=== PATIENT | male | born 1965 | race Caucasian/White ===

== ENCOUNTER 2022-02-20 08:52 | Outpatient (CLI) | payer BC, SELFPAY ==
[2022-02-20 14:21] LABS: Chloride* 103 mmol/L (96-114); Potassium* 3.9 mmol/L (3.6-5.1); Sodium* 139 mmol/L (135-149)
[2022-02-20 14:23] LABS: Cholesterol* 145 mg/dL (90-199); Creatinine* 1.1 mg/dL (0.5-1.5); Estimated Glomerular Filt Rate 78 ml/min
[2022-02-20 14:24] LABS: Blood Urea Nitrogen* 21 mg/dL (7-30); Calcium* 9.2 mg/dL (8.4-10.6); Carbon Dioxide* 27 mmol/L (20-32); Glucose* 94 mg/dL (60-115); Triglycerides* 64 mg/dL (40-149)
[2022-02-20 14:25] LABS: HDL Cholesterol* 50 mg/dL (>=40); LDL Cholesterol Calculated 82 mg/dL (<100)
[2022-02-20 14:55] LABS: PSA Screen* 0.52 ng/mL (0.10-4.00)
[2022-02-25 09:38] LABS: Sex Hormone Binding Globulin 85 nmol/L (19-76); Testosterone, Free LC-MS/MS 74.7 pg/mL (47.0-244.0); Testosterone, LC-MS/MS 713 ng/dL (300-890)
== END 2022-02-20 08:53 | disposition home or self-care (01) ==
PROVIDERS: PCP Family Medicine; Visit Provider Family Medicine
DX: Z00.00 Encounter for general adult medical examination without abnormal findings (principal); R68.82 Decreased libido; D61.818 Other pancytopenia; I48.91 Unspecified atrial fibrillation; Q23.1 Congenital insufficiency of aortic valve
CPT/HCPCS: 80048; 80061; 84153; 84270; 84402; 84403

== ENCOUNTER 2022-05-09 14:35 | Outpatient (CLI) | payer BC, SELFPAY ==
[2022-05-09 21:53] LABS: Chloride* 105 mmol/L (96-114); Potassium* 4.1 mmol/L (3.6-5.1); Sodium* 140 mmol/L (135-149)
[2022-05-09 21:56] LABS: Blood Urea Nitrogen* 18 mg/dL (7-30); Calcium* 9.2 mg/dL (8.4-10.6); Carbon Dioxide* 29 mmol/L (20-32); Creatinine* 1.1 mg/dL (0.5-1.5); Estimated Glomerular Filt Rate 78 ml/min; Glucose* 74 mg/dL (60-115)
== END 2022-05-09 14:36 | disposition home or self-care (01) ==
PROVIDERS: PCP Family Medicine; Visit Provider Emergency Medicine
DX: Z01.818 Encounter for other preprocedural examination (principal)
CPT/HCPCS: 80048

== ENCOUNTER 2022-05-11 08:26 | Day surgery (SDC) | payer BC, SELFPAY ==
[2022-05-11] VITALS (27 sets, daily range): BP systolic 115–142; BP diastolic 61–84; PULSE 57–74; RESP 14–16; TEMP 36.2–36.7; O2SAT 96–100; BMI 23.0
[2022-05-11] MEDS: LACTATED RINGERS 1000 ML 1,000 ML 100 ML IV ×2 (09:00→12:22)
[2022-05-11] MEDS: SODIUM CHLORIDE 0.9 % (FLUSH) 10 ML SYRINGE IVF (09:00)
[2022-05-11] MEDS: CLINDAMYCIN 900 MG/50 ML-D5W IVPB (11:21)
[2022-05-11] MEDS: BUPIVACAINE 0.5% 30 ML INJECTION (12:35)
--- NOTE | 2022-05-11 12:55 | W.ANESCHARGE ---
Anesthesia Charges Start Date/Time Anesthesia Start Date: 05/11/22 Anesthesia Start Time: 11:17 Stop Date/Time Anesthesia Stop Date: 05/11/22 Anesthesia Stop Time: 12:54 Summary Emergency: No
--- NOTE | 2022-05-11 12:56 | W.ANESCHARGE ---
Anesthesia Charges Start Date/Time Anesthesia Start Date: 05/11/22 Anesthesia Start Time: 11:17 Stop Date/Time Anesthesia Stop Date: 05/11/22 Anesthesia Stop Time: 12:54 Summary Emergency: No
--- NOTE | 2022-05-11 13:26 | P.GSOP_ITS ---
Operative Note Date of procedure: 05/11/22 Pre-op diagnosis: Right inguinal hernia Post-op diagnosis: Same Type of Procedure: Open right inguinal hernia repair with mesh Indications: The patient is a 57-year-old male who presented to clinic with right groin pain after shoveling. He was found to have a right inguinal hernia. After discussion of options for management he elected to proceed with repair. Procedure Description: After discussing the risks and benefits of the procedure, the patient signed informed consent.? The operative site was marked and the patient was brought to the operating room and placed on the operating table in supine position.? Care was taken to pad the patient's pressure points.?? The patient was then intubated by anesthesia.?? The operative site was then prepped and draped in the usual sterile fashion.? A time-out was then performed. Local anesthetic was injected into the skin and subcutaneous tissue overlying the inguinal canal. An ilioinguinal nerve block was performed. An oblique incision was made over the external ring. Dissection was carried down into the subcutaneous tissue using cautery until the external oblique fascia was encountered. This was cleared off. The external ring was identified and after injection of more local anesthetic, the external oblique was incised using a knife. This was extended using the Metzenbaum scissors with care to dissect the underlying cord structures away from the fascia before cutting. The cord was cleared from the inside of the inguinal canal and looped with a Marck drain. A indirect inguinal hernia was identified. The hernia sac was dissected off of the cord structures. The sac was opened to ensure no intra-abdominal structures were contained within. It was then ligated proximally and reduced into the abdomen. A piece of polypropylene mesh was obtained and cut to size. This was secured to the pubic tubercle using to 0 Prolene on a double-armed suture. The Prolene was run along the inguinal ligament inferiorly and along the transversalis fascia superiorly, securing the tails around the cord and re-creat ing the internal ring. The ring was just large enough to permit my fingertip. The wound was examined for hemostasis which was found to be adequate. The external oblique fascia was then reapproximated with absorbable suture. The wound was then closed in layers including Stefani's fascia and the dermis with absorbable suture. The skin was then closed with a running subcuticular suture. Sterile dressings were applied. Instrument, sponge, and needle counts were correct at the end of the case. The scrotum was examined and contain both testicles. The patient was woken and taken to the PACU in stable condition. Findings: Indirect right inguinal hernia Anesthesia: EMILIE Surgeon: Hoda Morales MD Estimated blood loss (mL): 5 Condition: stable Disposition: PACU
[2022-05-11] MEDS: HYDROCODONE-ACETAMIN 5-325 MG 1 TAB PO (13:58)
== END 2022-05-11 15:00 | disposition home or self-care (01) ==
PROVIDERS: PCP Family Medicine; Visit Provider Surgery
PROC: (CPT 49505; principal; 2022-05-11 09:45)
DX: K40.90 Unilateral inguinal hernia, without obstruction or gangrene, not specified as recurrent (principal)
CPT/HCPCS: 49505; 00830; A9270; C1781; J0330; J1885; J2250; J2405; J2704; J3010; J3490; J7120; S0077

== ENCOUNTER 2023-03-06 09:06 | Outpatient (CLI) | payer BC, SELFPAY | END 2023-03-06 09:07 | disposition home or self-care (01) | PROVIDERS: PCP Family Medicine; Visit Provider Family Medicine | DX: Z00.00 Encounter for general adult medical examination without abnormal findings (principal); R68.82 Decreased libido; E87.6 Hypokalemia; R32 Unspecified urinary incontinence; D61.818 Other pancytopenia | CPT/HCPCS: 80053; 80061; 84153 ==

== ENCOUNTER 2024-01-28 18:02 | Outpatient (CLI) | payer BC, SELFPAY | END 2024-01-28 18:03 | disposition home or self-care (01) | PROVIDERS: PCP Family Medicine; Visit Provider Family Medicine | DX: E87.6 Hypokalemia (principal); Z13.220 Encounter for screening for lipoid disorders; Z12.5 Encounter for screening for malignant neoplasm of prostate; D61.818 Other pancytopenia | CPT/HCPCS: 80053; 80061; G0103 ==

== ENCOUNTER 2024-02-18 07:12 | Outpatient (CLI) | payer BC, SELFPAY ==
--- NOTE | 2024-02-18 08:18 | W.ANESCHARGE ---
Anesthesia Charges Start Date/Time Anesthesia Start Date: 02/18/24 Anesthesia Start Time: 07:50 Stop Date/Time Anesthesia Stop Date: 02/18/24 Anesthesia Stop Time: 08:16
--- NOTE | 2024-02-18 09:36 | W.ANESCHARGE ---
Anesthesia Charges Start Date/Time Anesthesia Start Date: 02/18/24 Anesthesia Start Time: 07:50 Stop Date/Time Anesthesia Stop Date: 02/18/24 Anesthesia Stop Time: 08:16
== END 2024-02-18 07:13 | disposition home or self-care (01) ==
LOC: OP CLINIC 07:13
PROVIDERS: PCP Family Medicine; Visit Provider Internal Medicine
DX: Z12.11 Encounter for screening for malignant neoplasm of colon (principal); K64.9 Unspecified hemorrhoids; Z86.0100 Personal history of colon polyps, unspecified
CPT/HCPCS: 00811; 00812; 45378; J2704

== ENCOUNTER 2024-10-17 08:45 | Outpatient (CLI) | payer BC, SELFPAY ==
--- OUTSIDE RECORDS SUMMARY | 2024-10-18 00:25 | XMS_ITS | Encounter Summary ---
[facility] Address [address] [address] Care Team Providers Care Practical Ministries Professor Name Role Phone Ba Trotter MD Primary Care Provider [phone] Encounter Details Date Type Department Care Team (Latest Contact Info) Description 02/14/1996 Orders Only Fan Taylor MD Social History Tobacco Use Types Packs/Day Years Used Date Smoking Tobacco: Never Assessed Sex and Gender Information Value Date Recorded Sex Assigned at Not on file Legal Sex Male 4:17 AM CDT Gender Identity Not on file Sexual Orientation Not on file documented as of this encounter Plan of Treatment Not on file documented as of this encounter Visit Diagnoses Not on filedocumented in this encounter Care Teams Practical Ministries Professor Relationship Specialty Start Date End Date Ba Trotter MD [address] [place] [address] PCP - General Family Practice 07/16/23 documented as of this encounter
--- OUTSIDE RECORDS SUMMARY | 2024-10-18 00:25 | XMS_ITS | Clinical Summary ---
Author Organization [facility] Address [address] [place] [address] Care Team Providers Care Dairy Consultant Name Role Phone Pati Trotter MD Primary Care Provider [phone] Allergies Active Allergy Reactions Criticality Noted Date Comments Amoxicillin Rash 08/20/2013 Penicillins Rash 08/20/2013 Medications beta carotene (VITAMIN A) 25,000 unit capsule Take 25,000 units by mouth three times daily. 0 08/20/2013 Active Active Problems Problem Noted Date Diagnosed Date Small bowel obstruction 07/11/2023 S/P ablation of accessory bypass tract 5 Sustained SVT 05/08/2014 Encounters Date Type Department Care Team Description 10/17/2024 9:00 AM CDT Ancillary Procedure [facility] [address] [address] Arrived from Last 3 Months Family History Medical History Relation Name Comments Heart Disease Father Relation Name Status Comments Father Social History Tobacco Use Types Packs/Day Years Used Date Smoking Tobacco: Never Smokeless Tobacco: Never Tobacco Cessation:Counseling Given: Yes Alcohol Use Standard Drinks/Week Comments Yes 0 (1 standard drink = 0.6 oz pur e alcohol) Social Connections Answer Date Recorded Do you often feel lonely or isolated from those around you? 0 07/11/2023 Financial Resource Strain Answer Date R ecorded Difficulty of Paying Living Expenses 3 07/11/2023 Difficulty of Paying Living Expenses Not on file 07/11/2023 Food Insecurity Answer Date Recorded Do you worry your food will run out before you are able to buy more? 1 07/11/2023 Transportation Needs Answer Date Record ed Does lack of transportation keep you from medica l appointments? 1 07/11/2023 Does lack of transportation keep you from work, meetings or getting things that you need? 1 07/11/2023 Housing Stability Answer Date Recorded What is your housing situation today? 1 07/11/2023 Interpersonal Safety Answer Date Record ed Are you being hit, kicked, p ushed or yelled at (see row info)? No 07/11/2023 Interpersonal Safety Abuse 12 - 18 Not on file 07/11/2023 Interpersonal Safety Ambulatory Vulnerability No t on file 07/11/2023 Utilities Answer Date Recorded Do you have trouble paying f or utilities (for example, heat, electricity, water, phone)? 1 07/11/2023 Sex and Gender Information Value Date Recorded Sex Assigned at Not on file Legal Sex Male 6:08 AM [employer] Gender Identity Not on file Sexual Orientation Not on file Obstetrics History Last Filed Vital Signs Vital Sign Reading Time Taken Comments Blood Pressure 141/90 07/16/2023 3:53 PM CDT Pulse 84 07/16/2023 3:53 PM CDT Temperature 36.1 C (97 F) 07/16/2023 3:53 PM CDT Respiratory Rate 16 07/16/2023 3:53 PM CDT Oxygen Saturation 99% 07/16/2023 3:53 PM CDT Inhaled Oxygen Concentration - - Weight 81.6 kg (180 lb) 07/11/2023 6:08 PM CDT Height 180.3 cm (5' 11) 07/11/2023 6:08 PM CDT Body Mass Index 25.1 07/11/2023 6:08 PM CDT Plan of Treatment Health Maintenance Due Date Last Done Comments Tdap 01/31/1976 Depression screening for age 12+ 1977 HIV for age 15-65 01/31/1980 BMI (ht and wt on same day) for age 18+ 1983 Hepatitis C screening for age 18-79 1983 Hepatitis B series for 19+ (1 of 3 - 19+ 3-dose series ) 01/31/1984 Pneumococcal series for age 50+ (1 of 2 - PCV) 984 Tetanus booster 1985 Colonoscopy through age 75 2010 Lipids for age 45-75 2010 Zoster (shingles) series for age 50+ (1 of 2) 01/31/20 15 COVID-19 vaccine series ( season) 4 Influenza Vaccine (Season Ended) 2024 Procedures Procedure Name Priority Date/Time Associated Diagnosis Comments ECHO TTE COMPLETE WO CONTRAST Routine 10/17/2024 9:40 AM CDT Congenital insufficiency of aortic valve (HC) from Last 3 Months Results * ECHO TTE COMPLETE WO CONTRAST (10/17/2024 9:40 AM CDT) AORTIC VALVE MEAN PG 3 mmHg EJECTION FRACTION 65 % LVEDD 4.0 cm EJECTION FRACTION 60 - 65% Anatomical Region Laterality Modality Ultrasound 10/17/2024 9:08 AM CDT Narrative 10/17/2024 10:11 AM CDT ECHOCARDIOGRAM JESUS CRUZ : 1965 59 years Study Date: 10/17/2024 9:08:45 AM Gender: M BP: 127/69 mmHg Height: 183.00 cm BSA: 2.07 m Weight: 85.00 kg Tech: [facility] Referring MD: PATI TROTTER Site: [facility] Reading Location: Mobile-OP Patient Location: Outpatient. Procedure: 2D, Color Doppler and Spectral Doppler. Indication for study: Congenital insufficiency of aortic valve (HC) Cardiac Rhythm: Regular and with premature ventricular contractions.Study quality: Fair. Imaging limitations: This study was subject to imaging limitations due to a prominent lung artifact. Final Impressions: 1. Normal LV size, normal wall thickness, normal function with an estimated EF of 60 - 65%. 2. Right ventricular cavity size is normal, global systolic RV function is normal. 3. The aortic valve is trileaflet and normal, no stenosis and trivial regurgitation. Comparison Compared to prior exam of 07/09/2020: The aortic valve is better visualized and is tri-leaflet Chamber Sizes and Function Normal left ventricular size, normal wall thickness, normal global systolic function with an estimated EF of 60 - 65%. No resting regional wall motion abnormality visualized. Left atrial size is normal. Right ventricular cavity size is normal, global systolic RV function is normal. The right atrium is normal. Right atrial volume index is 22 ml/m . Right atrial area is 16 cm . The pulmonary artery is not well visualized. The sinus of Valsalva is normal sized. The ascending aorta is normal sized. Valves, RV Pressures and Diastolic Function The aortic valve is trileaflet and normal in structure, no stenosis and trivial regurgitation. The mitral valve is normal in structure, trace mitral regurgitation. Normal diastolic function. The tricuspid valve is normal in structure, mild tricuspid regurgitation. The pulmonic valve is normal. Trace pulmonary regurgitation. Masses, Effusion, Shunts There is no pericardial effusion. The inferior vena cava is not well visualized, respiratory size variation not well visualized. No left to right shunting was detected by limited color flow Doppler interrogation of the interatrial septum. MEASUREMENTS AND CALCULATIONS 2-D Measurements and LV Function: LVID (d) 4.0 cm LV FS% (2D) 40 % LVID (s) 2.4 cm LVOT diameter 2.2 cm IVS (d) 1.0 cm HR 60 bpm LVPW (d) 1.0 cm LA Vol index 17 ml/m2 Ao Sinus 3.6 cm RA Vol index 22 ml/m2 Ao Sinus ULN 4.1 cm RA area 16 cm Asc Ao 3.1 cm RV Basal Diam 3.7 cm Asc Ao ULN 4.1 cm RV Mid Diam 2.9 cm LA 3.1 cm Diastology: Mitral Tissue Doppler E Peak 1.0 m/s e', Septum 0.11 m/s A Peak 0.6 m/s e', Lateral 0.08 m/s E/A 1.7 E/e' Average 10.26 DT 234 msec Aortic Valve: Vmax 1.1 m/s JANNETTE (V) 2.98 cm VTI 0.24 m JANNETTE (I) 2.86 cm LVOT V max 0.9 m/s Max PG 5 mmHg LVOT VTI 0.19 m Mean PG 3 mmHg SV 70 ml Dim Index 0.79 SV index 34 ml/m CO 4.2 l/min CI 2.0 l/min/m Mitral Valve: MVA 3.2 cm MR TVI 1.61 m MV P 1/2 68 msec Tricuspid Valve and estimated PA pressures: TAPSE 2.8 cm . This study was interpreted by an [facility] accredited facility. Final Procedure Note Sai Box MD - 10/17/2024 ECHOCARDIOGRAM JESUS CRUZ : 1965 59 years Study Date: 10/17/2024 9:08:45 AM Gender: M BP: 127/69 mmHg Height: 183.00 cm BSA: 2.07 m Weight: 85.00 kg Tech: [facility] Referring MD: PATI TROTTER Site: [facility] Reading Location: Mobile-OP Patient Location: Outpatient. Procedure: 2D, Color Doppler and Spectral Doppler. Indication for study: Congenital insufficiency of aortic valve (HC) Cardiac Rhythm: Regular and with premature ventricular contractions.Studyquality: Fair. Imaging limitations: This study was subject to imaging limitations due toa prominent lung artifact. Final Impressions: 1. Normal LV size, normal wall thickness, normal function with anestimated EF of 60 - 65%. 2. Right ventricular cavity size is normal, global systolic RV functionis normal. 3. The aortic valve is trileaflet and normal, no stenosis and trivialregurgitation. Comparison Compared to prior exam of 07/09/2020: The aortic valve is better visualizedand is tri-leaflet Chamber Sizes and Function Normal left ventricular size, normal wall thickness, normal globalsystolic function with an estimated EF of 60 - 65%. No resting regionalwall motion abnormality visualized. Left atrial size is normal. Rightventricular cavity size is normal, global systolic RV function is normal.The right atrium is normal. Right atrial volume index is 22 ml/m . Rightatrial area is 16 cm . The pulmonary artery is not well visualized. Thesinus of Valsalva is normal sized. The ascending aorta is normal sized. Valves, RV Pressures and Diastolic Function The aortic valve is trileaflet and normal in structure, no stenosis andtrivial regurgitation. The mitral valve is normal in structure, tracemitral regurgitation. Normal diastolic function. The tricuspid valve isnormal in structure, mild tricuspid regurgitation. The pulmonic valve isnormal. Trace pulmonary regurgitation. Masses, Effusion, Shunts There is no pericardial effusion. The inferior vena cava is not wellvisualized, respiratory size variation not well visualized. No left toright shunting was detected by limited color flow Doppler interrogation ofthe interatrial septum. MEASUREMENTS AND CALCULATIONS 2-D Measurements and LV Function: LVID (d) 4.0 cm LV FS% (2D) 40 % LVID (s) 2.4 cm LVOT diameter 2.2 cm IVS (d) 1.0 cm HR 60 bpm LVPW (d) 1.0 cm LA Vol index 17 ml/m2 Ao Sinus 3.6 cm RA Vol index 22 ml/m2 Ao Sinus ULN 4.1 cm RA area 16 cm Asc Ao 3.1 cm RV Basal Diam 3.7 cm Asc Ao ULN 4.1 cm RV Mid Diam 2.9 cm LA 3.1 cm Diastology: Mitral Tissue Doppler E Peak 1.0 m/s e', Septum 0.11 m/s A Peak 0.6 m/s e', Lateral 0.08 m/s E/A 1.7 E/e' Average 10.26 DT 234 msec Aortic Valve: Vmax 1.1 m/s JANNETTE (V) 2.98 cm VTI 0.24 m JANNETTE (I) 2.86 cm LVOT V max 0.9 m/s Max PG 5 mmHg LVOT VTI 0.19 m Mean PG 3 mmHg SV 70 ml Dim Index 0.79 SV index 34 ml/m CO 4.2 l/min CI 2.0 l/min/m Mitral Valve: MVA 3.2 cm MR TVI 1.61 m MV P 1/2 68 msec Tricuspid Valve and estimated PA pressures: TAPSE 2.8 cm . This study was interpreted by an [facility] accredited facility. Final Pati Trotter MD ECHO ORD Final Result from Last 3 Months Insurance [facility] Advance Directives * Full Code (Latest Code Status on File) Date Activated Date Inactivated Comments 07/11/2023 10:28 PM 07/16/2023 7:34 PM Question Answer Comments Code Status Discussion: Reviewed Preferences Care Teams Dairy Consultant Relationship Specialty Start Date End Date Pati Trotter MD [address] [place] [address] PCP - General Family Practice 07/11/23
--- OUTSIDE RECORDS SUMMARY | 2024-10-18 00:25 | XMS_ITS | Clinical Summary ---
Author Organization [facility] Address [address] [place] [address] Care Team Providers Care Newsstand Vendor Name Role Phone Ba Trotter MD Primary Care Provider [phone] Source Comments You are receiving this document as you are listed as the primary care provider,follow-up provider, or the patient has been referred to you for consultation.This is in compliance with the Medicare and[facility] EHR Incentive Program,which states Providers who transition their patient to another setting of careor provider of care or refers their patient to another provider of care shouldprovide summary care record for each transition of care or referral. Independent IP Allergies Active Allergy Reactions Criticality Noted Date Comments Amoxicillin Rash 07/18/2023 Penicillins Rash 07/18/2023 Medications [id number] LYTES (AKA GOLYTELY) 236 g SOLR 4 liter bottle Take by mouth. 03/06/2023 Active Social History Tobacco Use Types Packs/Day Years Used Date Smoking Tobacco: Never Assessed Sex and Gender Information Value Date Recorded Sex Assigned at Not on file Legal Sex Male 4:17 AM CDT Gender Identity Not on file Sexual Orientation Not on file Plan of Treatment Health Maintenance Due Date Last Done Comments Colon Cancer Screening Plan Due 1965 Hep C Screening (Preventive Services) 1965 PSA Screening Discussion 1965 HIV Screening (Preventive Services) 1981 Adult Preventive Visit 1983 HepB Vaccine (1) 01/31/1984 Cholesterol 01/31/2000 Pneumococcal Vaccine 50+ Yrs (1 of 1 - PCV) 2015 Zoster/Shingles Vaccine (1 o f 2) 2015 COVID-19 Vaccine (1 - 2023-2 5 season) 2023 Influenza Vaccine (Season Ended) 2024 DTaP/Tdap/Td Vaccine (3 - Tdap) 02/21/2032 02/20/2022, 11/15/2009 HepA Vaccine Aged Out No longer eligi ble based on patient's age to complete this topic Hib Vaccine Aged Out No longer eligi ble based on patient's age to complete this topic IPV (Polio) Vaccine Aged Out No longe r eligible based on patient's age to complete this topic MCV4 Vaccine Aged Out No longer eligi ble based on patient's age to complete this topic Meningococcal B Vaccine Aged Out No l onger eligible based on patient's age to complete this topic [place] [address] Care Teams Newsstand Vendor Relationship Specialty Start Date End Date Ba Trotter MD [address] [place] [address] PCP - General Family Practice 07/16/23
== END 2024-10-17 08:46 | disposition home or self-care (01) ==
LOC: RAD 08:45
PROVIDERS: PCP Family Medicine; Visit Provider Family Medicine
DX: Q23.1 Congenital insufficiency of aortic valve (principal); I35.1 Nonrheumatic aortic (valve) insufficiency
CPT/HCPCS: 93306

== ENCOUNTER 2025-01-09 11:16 | Outpatient (CLI) | payer BC, SELFPAY | END 2025-01-09 11:17 | disposition home or self-care (01) | PROVIDERS: PCP Family Medicine; Visit Provider Family Medicine | DX: Z00.00 Encounter for general adult medical examination without abnormal findings (principal); R79.89 Other specified abnormal findings of blood chemistry | CPT/HCPCS: 80053; 80061; G0103 ==